=== PATIENT | male | born 1955 | race Caucasian/White ===

== ENCOUNTER 2022-06-06 15:06 | Inpatient (IN) | payer MEDICARE, OTHER ==
[2022-06-06 15:18] VITALS: RESP 18; BMI 29.5
[2022-06-06] MEDS ORDERED: ASPIRIN 81 MG CHEWABLE TABLETS PO ONE (16:27)
[2022-06-06] MEDS ORDERED: ASPIRIN 81 MG CHEWABLE TABLETS ONE (16:45)
[2022-06-06 17:08] LABS: BASO % 1.1 % (0-2.0); EOS % 2.6 % (0-4.5); HEMATOCRIT 39.1 % (35.4-49); HEMOGLOBIN 12.7 GM/dL (11.7-16.9); LYMPH % 33.5 % (8-40); MCH 23.1 pg (25.7-33.7); MCHC 32.6 g/dl (32.0-35.9); MEAN CELL VOLUME 70.8 fl (80-96); MEAN PLT VOLUME 7.8 fl (7.5-11.1); MONO % 7.7 % (3.8-10.2); NEUT % 55.1 % (42.8-82.8); PLATELET COUNT 260 10^3/uL (134-434); RBC 5.52 M/mm3 (4.00-5.60); RDW 14.6 % (11.9-15.9); WHITE BLOOD COUNT 6.3 K/mm3 (4.0-10.0)
[2022-06-06 17:30] LABS: ALBUMIN 3.9 g/dl (3.4-5.0)
[2022-06-06 17:33] LABS: CREATININE 0.7 mg/dL (0.55-1.3)
[2022-06-06 17:35] LABS: BILIRUBIN,TOTAL 0.2 mg/dL (0.2-1); TOT PROT 7.5 g/dl (6.4-8.2)
[2022-06-06] MEDS ORDERED: ACETAMINOPHEN 325 MG TABLET (FP) PO PRN (20:47)
[2022-06-06] MEDS ORDERED: MAG HYDROX/AL HYDROX/SIMETH 30 ML UNIT-DOSE CUP PO ONE (21:30)
[2022-06-06] MEDS ORDERED: ATORVASTATIN CA 10 MG TABLET (FP) PO SCH (22:00)
[2022-06-06] MEDS ORDERED: ATORVASTATIN CA 40 MG TABLET (FP) PO SCH (22:03)
[2022-06-06] MEDS ORDERED: MAG HYDROX/AL HYDROX/SIMETH 30 ML UNIT-DOSE CUP ONE (22:12)
[2022-06-06] MEDS ORDERED: ATORVASTATIN CA 40 MG TABLET (FP) ONE (22:13)
[2022-06-06] MEDS ORDERED: PANTOPRAZOLE 40 MG TABLET PO ONE (22:13)
[2022-06-06] MEDS: INSULIN SLIDING SCALE (NOVOLOG) 1 VIAL SQ SCH (22:30)
[2022-06-06] MEDS: PANTOPRAZOLE 40 MG TABLET PO SCH (22:31)
[2022-06-07] MEDS ORDERED: MAG HYDROX/AL HYDROX/SIMETH 30 ML UNIT-DOSE CUP PO PRN (04:10)
[2022-06-07 06:52] LABS: BASO % 0.5 % (0-2.0); EOS % 2.6 % (0-4.5); HEMOGLOBIN 12.4 GM/dL (11.7-16.9); LYMPH % 28.3 % (8-40); MCH 22.5 pg (25.7-33.7); MCHC 31.8 g/dl (32.0-35.9); MEAN CELL VOLUME 70.6 fl (80-96); MEAN PLT VOLUME 8.4 fl (7.5-11.1); MONO % 6.5 % (3.8-10.2); NEUT % 62.1 % (42.8-82.8); PLATELET COUNT 243 10^3/uL (134-434); RBC 5.52 M/mm3 (4.00-5.60); RDW 14.9 % (11.9-15.9); WHITE BLOOD COUNT 5.2 K/mm3 (4.0-10.0)
[2022-06-07 07:18] LABS: CALCIUM 8.9 mg/dL (8.5-10.1)
[2022-06-07 07:19] LABS: ALBUMIN 3.6 g/dl (3.4-5.0); BLOOD UREA NITROGEN 13.4 mg/dL (7-18); MAGNESIUM 2.3 mg/dL (1.8-2.4)
[2022-06-07 07:22] LABS: CREATININE 0.8 mg/dL (0.55-1.3); PHOSPHOROUS 4.1 mg/dL (2.5-4.9)
[2022-06-07 07:23] LABS: BILIRUBIN,TOTAL 0.4 mg/dL (0.2-1); TOT PROT 6.9 g/dl (6.4-8.2)
[2022-06-07] MEDS: INSULIN SLIDING SCALE (NOVOLOG) 1 VIAL SQ SCH (08:09)
[2022-06-07] MEDS ORDERED: amLODIPine BESYLATE 5 MG TABLET (FP) ONE (09:00)
[2022-06-07] MEDS ORDERED: PANTOPRAZOLE 40 MG TABLET PO ONE (09:00)
[2022-06-07] MEDS ORDERED: ENOXAPARIN NA (PORCINE) 40 MG/0.4 ML DISP.SYRIN SQ ONE (09:01)
[2022-06-07] MEDS ORDERED: LISINOPRIL 10 MG TABLET ONE (09:01)
[2022-06-07 09:38] LABS: PH,URINE 7.5 (5.0-8.0); URINE APPEARANCE CLEAR; URINE BILIRUBIN NEGATIVE (NEGATIVE); URINE COLOR YELLOW; URINE GLUCOSE (UA) NEGATIVE (NEGATIVE); URINE KETONE NEGATIVE (NEGATIVE); URINE LEUK ESTERASE NEGATIVE (NEGATIVE); URINE NITRITE NEGATIVE (NEGATIVE); URINE PROTEIN NEGATIVE (NEGATIVE); URINE UROBILINOGEN 0.2 mg/dL (0.2-1.0)
[2022-06-07] MEDS: PANTOPRAZOLE 40 MG TABLET PO SCH (09:41)
[2022-06-07] MEDS ORDERED: ACETAMINOPHEN 325 MG TABLET (FP) ONE (09:54)
[2022-06-07] MEDS ORDERED: amLODIPine BESYLATE 5 MG TABLET (FP) PO SCH (10:00)
[2022-06-07] MEDS ORDERED: ENOXAPARIN NA (PORCINE) 40 MG/0.4 ML DISP.SYRIN SQ SCH (10:00)
[2022-06-07] MEDS ORDERED: INSULIN (LEVEMIR) 100 UNITS/ML UNITS SQ SCH (10:00)
[2022-06-07] MEDS ORDERED: LISINOPRIL 10 MG TABLET PO SCH (10:00)
[2022-06-07 11:48] VITALS: BP 127/81; PULSE 72; TEMP 98.1
== END 2022-06-07 12:03 | disposition home or self-care (01) | DRG 313 ==
LOC: JER 15:06 → JERBED 19:05 → OBSVTOIN 20:47
PROVIDERS: ADMIT Internal Medicine
DX: R07.9 Chest pain, unspecified (principal); I10 Essential (primary) hypertension; E11.9 Type 2 diabetes mellitus without complications; E78.5 Hyperlipidemia, unspecified
CPT/HCPCS: 36415; 71046-TC-FY; 73030-TC-RT-FY; 80053; 80061; 81003; 82272; 82962; 83036; 83735; 84100; 84443; 84484; 85025; 85651; 86140; 87338; 93005; 93010; 93306-TC; 99285-25; C9803-CS; G0378; U0003; U0005